=== PATIENT | female | born 1965 | race Caucasian/White ===

== ENCOUNTER 2017-08-02 14:22 | Observation (INO) | payer OTHER ==
[2017-08-02 15:57] VITALS: BMI 24.3
[2017-08-02] MEDS: D5 0.45 NS 1,000 ML IV SCH ×2 (16:33→23:00)
[2017-08-02] MEDS: Morphine 2 MG/2 ML SYR IV PRN ×2 (16:34→20:37)
[2017-08-02] MEDS: PANTOPRAZOLE 40 MG INJ IVP SCH (16:35)
[2017-08-02 18:25] LABS: Urine Appearance CLEAR; Urine Bilirubin NEGATIVE (NEG); Urine Blood NEGATIVE (NEG); Urine Color YELLOW; Urine Glucose NEGATIVE (NEG); Urine Protein NEGATIVE (NEG); Urine Urobilinogen 0.2 mg/dL (0.2-1.0)
[2017-08-02 18:50] LABS: Urine Microscopic Reflex NO UMIC
[2017-08-02 22:28] VITALS: O2SAT 99
[2017-08-03] MEDS: Morphine 2 MG/2 ML SYR IV PRN ×2 (01:40→13:32)
[2017-08-03] MEDS: D5 0.45 NS 1,000 ML IV SCH ×2 (06:30→15:00)
[2017-08-03] MEDS ORDERED: CODEINE 30MG/APAP 300MG TAB PO PRN (07:00)
[2017-08-03] MEDS ORDERED: SODIUM CHLORIDE 0.9% 10ML INJ IV SCH (09:00)
--- NOTE | 2017-08-03 09:05 | RAD REPORT ---
EXAM DESCRIPTION: US - Abdomen Exam Limited - 08/02/2017 7:45 pm CLINICAL HISTORY: Abdominal pain. COMPARISON: None. FINDINGS: Two gallstones are present. The gallbladder wall is upper limits normal thickness The biliary tree is normal caliber. IMPRESSION: Cholelithiasis
[2017-08-03] MEDS: PANTOPRAZOLE 40 MG INJ IVP SCH (10:16)
[2017-08-03 10:28] LABS: ALT/SGPT 13 IU/L (10-60); AST/SGOT 15 IU/L (10-42); Albumin 3.6 g/dL (3.2-5.5); Alkaline Phosphatase 65 IU/L (42-121); BUN Blood Urea Nitrogen 6 mg/dL (6-20); Bicarbonate 27 mEq/L (21-31); Bilirubin Total 0.6 mg/dL (0.3-1.2); Glucose Level 112 mg/dL (65-120); Potassium 3.8 mEq/L (3.6-5.0); Sodium Level 139 mEq/L (135-145)
--- NOTE | 2017-08-03 11:43 | CON ---
Date of Consultation: 08/03/2017 Reason For Consultation: Cholelithiasis. History Of Present Illness: The patient is a 52-year-old female, who states on Monday she had some r ight flank pain and then she had left upper quadrant pain. She had no diarrhea. She did have consti pation. She was took some laxative that did not help. No dysuria or hematuria. She does have some bloating, belching and heartburn and the pain is not postprandial in nature and the pain in the right side has gone, but she still has tenderness in the left upper quadrant. She had an extensive workup and I was asked to evaluate this patient. She denies any sore throat, runny nose, cough, headaches, or dizziness. No chest pain. No fever or chills. Review of Systems: Otherwise unremarkable. Past Medical History: Negative. Past Surgical History: Appendectomy and x2. Allergies: INCLUDE PENICILLIN. Social History: She does smoke occasionally. Denies drinking. Family History: Significant for lung cancer in the father. Physical Examination: Vital Signs: Stable and temperature was 99.1 this morning. General: She is awake, alert, and oriented x3. Head and Neck: There was no evidence of icterus. Cranial nerves 2 through 12 are grossly within nor mal limits. No neck masses. No JVD. Throat clear. Neck is supple. Chest: Clear. Heart: S1, S2. Abdomen: Soft, nondistended. There is no tenderness in the right upper quadrant. There is some ten derness in the left upper quadrant. No rebound, rigidity, or guarding. Extremities: Adequately perfused. Nontender. Neuro: Nonfocal. Laboratory Data: Reviewed. Her amylase, LFTs, and chemistry are within normal limits. Her amylase was 164 yesterday. Her white count is normal. H and H are normal. Neutrophil percentage is normal. She had a CAT scan of the abdomen and pelvis, which showed no bowel dilatation, inflammatory strand ing, or other abnormality to explain the acute pain symptoms. An 11 mm pancreatic cyst present in th e body of the pancreas. This is new from 2008, but still favor to be a benign process. Follow up co ntrast MRI imaging is recommended to re-evaluate. She had an ultrasound of the abdomen, which showed 2 gallstones in the gallbladder. The gallbladder wall is upper limits of normal thickness. The kerry iary tree is normal. There is no pericholecystic fluid. Assessment: A 52-year-old female with abdominal pain, cholelithiasis, and pancreatic cyst. Recommendations: I do not believe that the pain is from acute cholecystitis at this time. She needs a little further workup regarding the left upper quadrant pain, go and get an MRI of the pancreas, a nd will later eat after that and if she tolerates her diet, she can be discharged to home. Follow up with GI for an EGD and should that workup be negative and she still has biliary colic symptoms in e future, then she would benefit from a laparoscopic cholecystectomy. The plan of care was discussed in detail with the patient, , and Dr. Oropeza. NAREN/CARY Voice ID: [id number] Report ID: [id number]
--- NOTE | 2017-08-03 16:02 | RAD REPORT ---
EXAM DESCRIPTION: MRI - Mri Abdomen W/Wo Cont - 08/03/2017 3:32 pm CLINICAL HISTORY: Pancreatic mass, abnormal CT study COMPARISON: CT August 02 TECHNIQUE: Multiplanar imaging of the abdomen performed using T1 weighted, T2 weighted, T2 fat satur ation, T1 inphase/out of phase and post contrast T1 fat saturation sequencing. A 17 milliliter MultiH ance gadolinium contrast volume was utilized. FINDINGS: In the posterior pancreas at the tail body junction there is an 11 millimeter oval mass pr esent matching the CT finding for size and location. This mass is hypointense on T1 imaging and homog eneous Ko hyperintense on T2 imaging. This mass does not appear to communicate with the main pancrea tic duct. The on postcontrast imaging the mass remains hypointense. No enhancing component is present . Elsewhere in the pancreas there is no additional solid or cystic mass identifiable. No peripancreat ic edema or inflammatory stranding. No suspicious liver finding. A few small incidental cysts are present in the left lobe and anterior r ight lobe. No acute splenic finding. Gallbladder and biliary tree show no suspicious findings. Gallst ones have been diagnosed and/or better appreciated on a different imaging modality. No biliary tree d ilatation. No acute bowel finding. No lymphadenopathy or ascites. IMPRESSION: Approximately 11 millimeter cyst posterior pancreas. No findings to elevate concern for pancreatic malignant process. Follow-up imaging in 6-12 months cou ld be performed to assure stability.
--- NOTE | 2017-08-03 17:22 | HP ---
Date of Admission: 08/02/2017 Chief Complaint: Abdominal pain. History Of Present Illness: A 52-year-old female, who was brought to the office with 1-2 days of upp er abdominal pain. Outpatient workup showed normal CBC and Chem profile; however, her amylase was el evated. In view of continued symptoms, the patient was admitted for observation. There is no histor y of prior gallbladder disease. No history of ulcer disease. No history of alcohol abuse or trauma. Past Medical History: Essentially negative for any chronic illnesses. Family History: Negative. Personal History: Nonsmoker. No alcohol abuse. Allergies: PENICILLIN. Medications: No regular medications. Review of Systems: No chest pain. Physical Examination: General: Revealed a 52-year-old female in [id number] pain. HEENT: Negative. Neck: Supple. JVD negative. Chest: Clear. Heart: Regular. Abdomen: Tender left upper quadrant. Bowel sounds present. Extremities: No edema. Laboratory Data: White count normal. CBC normal. CAT scan of the abdomen, possible cyst, pancreas. Amylase is elevated. Assessment: 1.Possible gallstone passage causing pancreatitis. 2.Gallstones as documented on the ultrasound. 3.Chronic cyst, pancreas. Plan: Surgical consultation has been done. Pending that, she is on liquid diet and Protonix, which will be continued. NEERAJ/CARY Voice ID: [id number]
[2017-08-03 17:30] VITALS: BP 128/67; TEMP 99.6
== END 2017-08-03 19:20 | disposition home or self-care (01) ==
LOC: 2ND 14:37
PROVIDERS: ADMIT Internal Medicine; ATTEND Internal Medicine
DX: K80.20 Calculus of gallbladder without cholecystitis without obstruction (principal); K86.2 Cyst of pancreas; Z88.0 Allergy status to penicillin
CPT/HCPCS: 36415; 76705; 80053; 81003; 82150; C9113; G0378; G0379; J2270

== ENCOUNTER 2018-06-01 12:18 | Day surgery (SDC) | payer OTHER ==
[2018-05-31 13:42] LABS: Albumin 3.9 g/dL (3.4-5.0); Bilirubin Direct 0.1 mg/dL (0-0.2); Bilirubin Total 0.4 mg/dL (0.2-1.0); Protein, Total 7.9 g/dL (6.4-8.2)
--- NOTE | 2018-05-31 13:56 | RAD REPORT ---
EXAM DESCRIPTION: RAD - Chest Pa And Lat (2 Views) - 05/31/2018 1:45 pm CLINICAL HISTORY: pre op Chest pain. COMPARISON: CHEST PA AND LAT 2 VIEW dated 09/24/2007; CHEST PA AND LAT 2 VIEW dated 06/09/2004 FINDINGS: The lungs are clear. The heart is upper limit of normal in size. No displaced fractures. IMPRESSION: No acute or concerning finding suspected.
--- NOTE | 2018-05-31 17:07 | EKG ---
Test Date: 2018-05-31 Test Time: 13:30:26 Senior Manager [employer]: LEONIDAS MEASUREMENT RESULTS: Intervals: Rate: 60 [place]: 154 QRSD: 84 QT: 406 QTc: 406 [place]: P: 60 [place]: 154 QRS: 73 T: 61 INTERPRETIVE STATEMENTS: Normal sinus rhythm Normal ECG No previous ECG available for comparison Electronically Signed On 05-31-18 17:06:36 CDT by Jose Elias Will
[2018-06-01] MEDS ORDERED: Ringers Lactate 1,000 ML IV ONE (12:48)
[2018-06-01] MEDS ORDERED: CIPROFLOXACIN 400mg IV 400 MG/200 ML BAG IV ONE (12:48)
[2018-06-01] MEDS ORDERED: BUPIVACAINE 0.5% PF 10 ML VIAL ONE (13:46)
[2018-06-01] MEDS ORDERED: FENTANYL CITR 100 MCG/2 ML ONE (13:48)
[2018-06-01] MEDS ORDERED: DEXAMETHASONE 10 MG/ML VIAL ONE (13:48)
[2018-06-01] MEDS ORDERED: ROCURONIUM 50 MG/5 ML VIAL IV ONE (13:48)
[2018-06-01] MEDS ORDERED: LIDOCAINE 2% MPF 5 ML VIAL ONE (13:48)
[2018-06-01] MEDS ORDERED: MIDAZOLAM HCL 2 MG/2 ML INJ ONE (13:48)
[2018-06-01] MEDS ORDERED: PROPOFOL 200 MG/20 ML VIAL IV ONE (13:48)
[2018-06-01] MEDS ORDERED: KETOROLAC 30 MG/ML INJ ONE (14:30)
--- NOTE | 2018-06-01 14:39 | P.BOP ---
Preoperative diagnosis: acute cholecystitis, symptomatic cholelithiasis, pancreatitis Postoperative diagnosis: same Primary procedure: Laparoscopic cholecystectomy Solar Installation Supervisor: Olimpia Magdaleno (Tylor) Specimen: gb Findings: as above Anesthesia: General Complications: None Transferred to: Recovery Room Condition: Good
[2018-06-01] MEDS ORDERED: GLYCOPYRROLATE 0.2 MG/ML SYR ONE (14:40)
[2018-06-01] MEDS ORDERED: NEOSTIGMINE 1 MG/ML -10 ML VIAL ONE (14:41)
[2018-06-01] MEDS ORDERED: ONDANSETRON 4 MG/2 ML VIAL ONE (14:57)
[2018-06-01] MEDS: HYDROMORPHONE HCL 1 MG/ML INJ ONE ×2 (15:01→15:06)
[2018-06-01] MEDS ORDERED: PROMETHAZINE 25 MG/ML VIAL ONE (15:03)
[2018-06-01 15:41] VITALS: TEMP 97.2; O2SAT 99
[2018-06-01] MEDS ORDERED: HYDROCODONE/APAP 5/325 MG TAB ONE (15:44)
[2018-06-01 16:11] VITALS: BP 148/59
--- NOTE | 2018-06-02 03:02 | OP ---
Date of Procedure: 06/01/2018 Surgeon: Israel Castellano MD [employer] Officer [employer]: Olimpia Magdaleno. Preoperative Diagnoses: Acute cholecystitis, symptomatic cholelithiasis, pancreatitis. Postoperative Diagnoses: Acute cholecystitis, symptomatic cholelithiasis, pancreatitis. Procedure: Laparoscopic cholecystectomy. Specimen: Gallbladder. Anesthesia: General plus local. Indications: This is the case of a 53-year-old patient, who comes to us with above diagnosis. Fully explained the benefits, alternatives, and risks of laparoscopic, possible open cholecystectomy, whic h include but are not limited to infection, bleeding, damage to adjacent structures, anesthesia compl ication, choledocholithiasis, bile leak, pancreatitis, ID, and even . She also understands this may not relieve the symptoms, she might need more than one surgical radiation. She understood, sign ed a consent. Description Of Procedure: The patient was brought to the OR room, placed in supine position. Anesth esia was done without complication. Abdominal area was prepped and draped in a sterile fashion. Mar sandor 0.5% was injected for local anesthetic, followed by sharp incision of the skin in the infraumbi lical region. The patient has a previous incision in that area. Incision was carried down to fascia , which was opened under direct vision. Peritoneum was encountered, opened under direct vision. Fawad ryl #1 was placed inside the fascia. Arnoldo trocar was carefully introduced. Pneumoperitoneum was o btained. I placed 3 more trocars, 5 mm each one of them, in the epigastric and right upper quadrant area under direct visualization, 5 mm each one of them. I put a grasper in the fundus of the gallbla dder, removed some omental adhesions from the gallbladder off, and then another grasper in the infund ibulum, retracted the gallbladder in the inferolateral fashion exposing the triangle of Calot, obtain ing critical view of safety. Cystic duct and cystic artery were clearly isolated and freed circumfer entially and a connection between those and the gallbladder were clearly identified. I proceeded to ligate those by using 3 clips proximal, 1 clip distal, ligation in middle. Same was done with the cy stic artery. The gallbladder was removed from liver using Bovie cauterizer and removed from abdomina l cavity using an EndoCatch through the umbilical incision. The area was inspected once again. No b ile leak, no bleeding. The gallbladder fossa was intact with no bleeding. At that moment, I proceed ed to remove the trocars under direct vision, deflated pneumoperitoneum, closed the fascia with #1 Vi cryl, irrigated subcutaneous tissue, closed that with 3-0 chromic and skin in a subcuticular fashion with 3-0 chromic and Steri-Strips on top. Sponge count and instrument counts were correct. The nelda ent tolerated the procedure well. The patient was sent to recovery in stable condition. DAGMAR/CARY Voice ID: [id number] Report ID: [id number]
--- NOTE | 2018-06-02 03:02 | DS ---
Date of Discharge: 06/01/2018 Diagnoses: Acute cholecystitis, symptomatic cholelithiasis, pancreatitis. Procedure: Laparoscopic cholecystectomy. Disposition: Home. Activity: As tolerated. No heavy lifting. Followup: Follow up in my office in 1 week. Call for appointment, [phone]. Keep area dry for 48 ho urs, then may shower. Keep Steri-Strips intact. Medications: See orders. DAGMAR/CARY Voice ID: [id number] Report ID: [id number]
== END 2018-06-01 16:18 | disposition home or self-care (01) ==
LOC: OR 12:18
PROVIDERS: ATTEND Surgery
PROC: 0FT44ZZ Resection of Gallbladder, Percutaneous Endoscopic Approach (ICD-10-PCS; principal; 2018-06-01 13:00)
DX: K80.12 Calculus of gallbladder with acute and chronic cholecystitis without obstruction (principal); K85.90 Acute pancreatitis without necrosis or infection, unspecified; F17.210 Nicotine dependence, cigarettes, uncomplicated
CPT/HCPCS: 36415; 71046; 80076; 82150; 83690; 88304; 93005; J0744; J1100; J1170; J2250; J2405; J2550; J2704; J2710; J3010